=== PATIENT | male | born 1980 | race Caucasian/White ===

== ENCOUNTER 2019-02-02 12:57 | Emergency (ER) | payer OTHER ==
[~2019-02-02] VITALS: Ht 180.3 cm; Wt 127.0 kg
[2019-02-02] MEDS ORDERED: AZOR 10-40 MG1 EACH (13:25)
== END 2019-02-02 18:05 | disposition home or self-care (01) ==
LOC: ER 12:57 → CPU-OBS 13:29 → ER 13:29
DX: I16.0 Hypertensive urgency (principal); I10 Essential (primary) hypertension; R51 Headache
CPT/HCPCS: G0378; G0379; 93005